=== PATIENT | male | born 1975 | race Hispanic/Latino ===

== ENCOUNTER 2019-03-09 02:39 | Emergency (ER) | payer OTHER ==
[2019-03-09] MEDS ORDERED: KETOROLAC TROMETHAMINE 60 MG/2 ML VIAL ONE (03:18)
[2019-03-09] MEDS ORDERED: DIAZEPAM 5 MG TABLET ONE (03:18)
== END 2019-03-09 04:15 | disposition home or self-care (01) ==
LOC: EDH 02:39
DX: M54.5 Low back pain (principal)
CPT/HCPCS: 96372; 99283; J1885

== ENCOUNTER 2019-03-10 02:54 | Emergency (ER) | payer OTHER ==
[2019-03-10] MEDS ORDERED: ORPHENADRINE CITRATE 30 MG/ML ML ONE (03:21)
[2019-03-10] MEDS ORDERED: KETOROLAC TROMETHAMINE 60 MG/2 ML VIAL ONE (03:21)
[2019-03-10] MEDS ORDERED: LIDOCAINE 5% TOPICAL PATCH TP ONE (03:30)
== END 2019-03-10 04:29 | disposition home or self-care (01) ==
LOC: EDH 02:54
DX: M62.830 Muscle spasm of back (principal)
CPT/HCPCS: 72100; 96372 ×2; 99284; J1885; J2360